=== PATIENT | male | born 1965 | race Caucasian/White ===

== ENCOUNTER 2018-01-27 09:07 | Observation (INO) | payer MEDICAID ==
[~2018-01-27] VITALS: Ht 167.6 cm; Wt 86.1 kg
--- NOTE | ~2018-01-27 | MORECARE ---
CASE MANAGEMENT DISCHARGE SUMMARY PATIENT: DAWN PATEL UNIT: [id number] ADM DATE: 01/27/18 AGE: 52 : 65 SEX: M ROOM/BED: D.6455 AUTHOR: RUBEN DAY PHYSICIAN: REFERRING PHYSICIAN: SCOTT ALONSO MD DATE OF SERVICE: 01/29/18 Discharge Plan Patient Name: DAWN PATEL [facility] [facility] 1965 Planned Disposition: Home Anticipated Discharge Date: 01/28/18 Discharge Date: 01/28/2018 Expected LOS: 1 Initial Reviewer: [email or web address] Initial Review Date: 01/29/2018 Generated: 01/29/18 12:25 pm Patient Name: DAWN PATEL Page [id number] at 1125 All edits/amendments must be made on the electronic document DICTATION DATE: 01/29/18 1125 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 [address] [place] [address] END OF REPORT
[2018-01-27 09:30] VITALS: BP 118/69
[2018-01-27 10:10] LABS: BASOPHILS 0.8 % (0-2); EOSINOPHILS 5.7 % (0-7); HEMATOCRIT 43.4 % (42.0-54.0); HEMOGLOBIN 15.3 g/dL (13.5-17.5); IMMATURE GRANULOCYTES 0.1 % (0-5); LYMPHOCYTES 33.1 % (15-50); MCH 30.5 pg (26.0-34.0); MCHC 35.3 g/dL (31.0-37.0); MCV 86.5 fL (80.0-100.0); MEAN PLATELET VOLUME 11.9 fL (7.4-10.4); MONOCYTES 8.9 % (2-11); NEUTROPHILS 51.4 % (40-80); PLATELET COUNT 146 10x3/uL (130-400); RBC 5.02 10x6/uL (4.20-6.10); RDW 13.3 % (11.5-14.5); WBC 7.7 10x3/uL (4.8-10.8)
[2018-01-27 10:15] LABS: ALKALINE PHOSPHATASE 78 U/L (46-116); ALT (SGPT) 26 U/L (10-68); APTT 38.4 SECONDS (22.8-39.4); BILIRUBIN - TOTAL 1.41 mg/dL (0.2-1.3); CALC OSMOLALITY 279 mosm/kg (275-300); CALCIUM 8.6 mg/dL (8.5-10.1); CARBON DIOXIDE 27.3 mmol/L (21.0-32.0); CHLORIDE - SERUM 106 mmol/L (98-107); CREATININE - SERUM 0.9 mg/dL (0.6-1.3); GLUCOSE 87 mg/dL (74-106); INR 1.27 (0.85-1.17); PROTEIN - SERUM 7.6 g/dL (6.4-8.2); PROTIME 15.5 SECONDS (11.6-15.0); SODIUM 141 mmol/L (136-145); UREA NITROGEN 12 mg/dL (7-18); eGFR NON AFRICAN AMERICAN > 90 mL/min (90-120)
[2018-01-27 10:25] LABS: AMYLASE - SERUM 59 U/L (25-115); CKMB 1.6 U/L (0.0-3.6); CREATINE KINASE 195 UL (21-232); LIPASE 115 U/L (73-393); MAGNESIUM - SERUM 1.9 mg/dL (1.8-2.4); TROPONIN-I < 0.017 ng/mL (0.000-0.060)
[2018-01-27 10:30] VITALS: BP 106/70
[2018-01-27 11:30] VITALS: BP 126/72
[2018-01-27 14:03] VITALS: BP 122/81; BMI 30.6
[2018-01-27 15:25] VITALS: BP 130/79
[2018-01-27 19:06] LABS: CKMB 1.8 U/L (0.0-3.6); CREATINE KINASE 167 UL (21-232); TROPONIN-I < 0.017 ng/mL (0.000-0.060)
[2018-01-27 19:38] VITALS: Ht 167.6 cm; Wt 86.1 kg
[2018-01-27 21:01] VITALS: BP 116/55
[2018-01-28] VITALS: BP 115/72
[2018-01-28 00:20] LABS: CKMB 1.7 U/L (0.0-3.6); CREATINE KINASE 140 UL (21-232); TROPONIN-I < 0.017 ng/mL (0.000-0.060)
[2018-01-28 06:11] VITALS: BP 101/58
[2018-01-28 06:36] LABS: INR 1.41 (0.85-1.17); PROTIME 16.8 SECONDS (11.6-15.0)
[2018-01-28 06:38] LABS: BILIRUBIN - DIRECT 0.26 mg/dL (0.00-0.30); CALC OSMOLALITY 276 mosm/kg (275-300); CALCIUM 8.3 mg/dL (8.5-10.1); CARBON DIOXIDE 27.6 mmol/L (21.0-32.0); CHLORIDE - SERUM 105 mmol/L (98-107); GLUCOSE 83 mg/dL (74-106); POTASSIUM - SERUM 3.6 mmol/L (3.5-5.1); SODIUM 139 mmol/L (136-145); UREA NITROGEN 12 mg/dL (7-18); eGFR NON AFRICAN AMERICAN 83 mL/min (90-120)
[2018-01-28 08:30] VITALS: BP 105/61
[2018-01-28 11:37] VITALS: BP 102/60
[2018-01-28] MEDS ORDERED: ASPIRIN325 MG PO (12:57)
[2018-01-28] MEDS ORDERED: CARAFATE1 G/10 ML PO (12:57)
[2018-01-28] MEDS ORDERED: PROTONIX40 MG PO (12:58)
== END 2018-01-28 15:05 | disposition home or self-care (01) ==
LOC: D.ER 09:07 → D.EDHOLD 11:34 → OBSVTIME 11:34 → D.M2 11:34
PROVIDERS: Family Medicine; Internal Medicine Gastroenterology
DX: K21.0 Gastro-esophageal reflux disease with esophagitis (principal); K29.71 Gastritis, unspecified, with bleeding; R13.10 Dysphagia, unspecified